=== PATIENT | female | born 1980 | race Caucasian/White ===

== ENCOUNTER 2022-05-19 13:02 | Outpatient (CLI) | payer OTHER, SELFPAY ==
[2022-05-19 21:38] LABS: Albumin* 4.4 g/dL (3.3-5.0); Chloride* 103 mmol/L (96-114); Sodium* 135 mmol/L (135-149)
[2022-05-19 21:41] LABS: Alanine Aminotransferase* 70 U/L (4-35); Alkaline Phosphatase* 74 U/L (40-150); Aspartate Amino Transferase* 42 U/L (12-35); Bilirubin Total* 0.7 mg/dL (0.1-1.5); Blood Urea Nitrogen* 20 mg/dL (5-24); Carbon Dioxide* 21 mmol/L (20-32); Estimated Glomerular Filt Rate 73 ml/min; Glucose* 157 mg/dL (60-115); Lipase* 104 U/L (23-300); Total Protein* 6.9 g/dL (6.0-8.3)
[2022-05-19 21:42] LABS: Calcium* 9.5 mg/dL (8.4-10.6)
== END 2022-05-19 13:03 | disposition home or self-care (01) ==
PROVIDERS: PCP Physician Assistant; Visit Provider Family Medicine
DX: R10.9 Unspecified abdominal pain (principal)
CPT/HCPCS: 80053; 83690; 87086

== ENCOUNTER 2022-06-02 07:57 | Outpatient (CLI) | payer OTHER, SELFPAY ==
--- NOTE | 2022-06-02 08:15 | CRLHL7_ITS ---
For Patients: As a result of the Century Cures Act, medical imaging exams and procedure reports are released immediately into your electronic medical record. You may view this report before your referring provider. If you have questions, please contact your health care provider. INDICATION: Abdominal pain. TECHNIQUE: Ultrasound abdomen limited. Sonographic images of the right upper quadrant were obtained using ac-scale and color Doppler images. COMPARISON: None. FINDINGS: Liver: Increased liver echogenicity. Liver is enlarged measuring 19.6 cm in AP dimension. No suspicious masses. No intrahepatic biliary dilatation. Hepatopetal portal venous flow. Gallbladder: No echogenic shadowing gallstones. Gallbladder sludge. Gallbladder wall is normal measuring 2 mm Common bile duct: 5 mm. Pancreas: Unremarkable. Kidneys: Normal in size. Right kidney measures 14 x 4.9 x 7.3 cm. Left kidney measures 13.2 x 4.1 x 6.4 cm. Normal echotexture and cortex. No suspicious masses, stones, or hydronephrosis. Spleen: Enlarged measuring 14.9 cm in AP dimension. Vasculature: Proximal abdominal aorta and IVC are unremarkable. Proximal aorta measures 2.2 cm. Mid abdominal aorta measures 1.9 cm. Distal abdominal aorta measures 1.8 cm. Or IMPRESSION: 1. Hepatomegaly with nonspecific diffusely increased liver echogenicity most likely hepatic steatosis or less likely other chronic liver disease. 2. Splenomegaly. 3. Gallbladder sludge. 4. Common bile duct is mildly prominent for age measuring 5 mm in diameter. Recommend correlation with labs. No intrahepatic biliary ductal dilation. Dictated by Ruiz Kumar MD @ 06/02/2022 10:24:15 AM (Electronically Signed)
== END 2022-06-02 07:58 | disposition home or self-care (01) ==
PROVIDERS: PCP Family Medicine; Visit Provider Family Medicine
DX: R10.9 Unspecified abdominal pain (principal); R16.1 Splenomegaly, not elsewhere classified; N28.89 Other specified disorders of kidney and ureter
CPT/HCPCS: 76700

== ENCOUNTER 2022-06-16 10:07 | Outpatient (CLI) | payer OTHER, SELFPAY | END 2022-06-16 10:08 | disposition home or self-care (01) | LOC: OP CLINIC 10:07 | PROVIDERS: PCP Family Medicine; Visit Provider Internal Medicine | DX: K92.1 Melena (principal); K63.5 Polyp of colon | CPT/HCPCS: 45380; 88305; J2250; J3010 ==